=== PATIENT | male | born 1965 | race Hispanic/Latino ===

== ENCOUNTER → 2017-09-01 | Outpatient (CLI) | payer BC ==
[~2017-09-01] MED LIST: ASPI-1114 PO; ATOR10 PO; CINN1CAP PO; FISHOIL PO; GLYB-226 PO; OMEGA PO; PIOG45TA64 PO; SITA100T12 PO
== END | disposition home or self-care (01) ==
LOC: SHCH 08:21
PROVIDERS: ATTEND Internal Medicine Cardiovascular Disease
DX: I65.23 Occlusion and stenosis of bilateral carotid arteries (principal); I25.10 Atherosclerotic heart disease of native coronary artery without angina pectoris; I10 Essential (primary) hypertension
CPT/HCPCS: 93306; 93880

== ENCOUNTER → 2018-05-17 | Outpatient (CLI) | payer BC | END | disposition home or self-care (01) | LOC: SHCH 08:15 | PROVIDERS: ATTEND Internal Medicine Cardiovascular Disease | DX: I11.9 Hypertensive heart disease without heart failure (principal); I25.10 Atherosclerotic heart disease of native coronary artery without angina pectoris; I35.8 Other nonrheumatic aortic valve disorders | CPT/HCPCS: 93306 ==

== ENCOUNTER 2018-06-22 05:37 | Observation (INO) | payer BC ==
[2018-06-20 10:46] VITALS: BP 147/68
[2018-06-20 10:48] LABS: BASOPHILS % (AUTO) 0.6 % (0.0-5.0); EOSINOPHILS % (AUTO) 3.7 % (0.0-8.0); HEMATOCRIT 41.3 % (42-54); LYMPHOCYTES % (AUTO) 25.6 % (21.0-51.0); MEAN CORPUSCULAR HEMOGLOBIN 29.9 pg (27.0-33.0); MEAN CORPUSCULAR HGB CONC 33.1 g/dL (32.0-36.0); MEAN CORPUSCULAR VOLUME 90.1 fL (79-99); MONOCYTES % (AUTO) 7.2 % (3.0-13.0); NEUTROPHILS % (AUTO) 62.9 % (40.0-77.0); NUCLEATED RED BLOOD CELLS 0.1 % (0.0-0.19); PLATELET COUNT (AUTO) 186 K/uL (130-400); RED BLOOD CELL COUNT(AUTO) 4.59 MIL/uL (4.50-6.20); RED CELL DISTRIBUTION WIDTH 14.3 % (11.0-15.5); WHITE BLOOD COUNT (AUTO) 6.6 K/uL (4.8-10.8)
[2018-06-20 10:57] LABS: BILIRUBIN,URINE Negative (NEGATIVE); COLOR,URINE Yellow (YELLOW); CREATININE 1.4 mg/dL (0.5-1.5); GLUCOSE, URINE (UA) >=1000 mg/dL (NEGATIVE); KETONES,URINE Negative (NEGATIVE); LEUKOCYTE ESTERASE ,URINE Trace (NEGATIVE); NITRATE,URINE Negative (NEGATIVE); OCCULT BLOOD,URINE Negative (NEGATIVE); POTASSIUM 4.8 mmol/L (3.5-5.1); PROTEIN,URINE Negative (NEGATIVE); UROBILINOGEN,URINE 0.2 mg/dL (0.2-1.0)
[2018-06-20 11:09] LABS: APPEARANCE,URINE HAZY (CLEAR); INR 0.98 (0.85-1.15); PARTIAL THROMBOPLASTIN TIME 29.8 SEC (26.3-35.5); PROTHROMBIN TIME 10.3 SEC (9.6-11.6)
[2018-06-20 11:15] LABS: BACTERIA,URINE Many /HPF (None Seen); RBC,URINE 0-1 /HPF (0-1); SQUAMOUS EPITHELIAL CELL,UR Rare /HPF (0-2)
[2018-06-22] VITALS (11 sets, daily range): BP systolic 134–178; BP diastolic 61–90
[~2018-06-22] VITALS: Ht 188 cm; Wt 128.3 kg
[~2018-06-22 05:37] MED LIST changes: +ACET-2743 PO; -CINN1CAP PO; +DAPA10TA PO; -FISHOIL PO; +METO-408 PO; -OMEGA PO; +PIOG30TA10 PO; -PIOG45TA64 PO; +SODIUM CHLORIDE 0.9% 500ML 500 ML IV SCH
[2018-06-22 06:28] LABS: APPEARANCE,URINE Clear (CLEAR); BILIRUBIN,URINE Negative (NEGATIVE); COLOR,URINE Yellow (YELLOW); GLUCOSE, URINE (UA) >=1000 mg/dL (NEGATIVE); KETONES,URINE Negative (NEGATIVE); LEUKOCYTE ESTERASE ,URINE Negative (NEGATIVE); NITRATE,URINE Negative (NEGATIVE); OCCULT BLOOD,URINE Negative (NEGATIVE); PROTEIN,URINE Negative (NEGATIVE); UROBILINOGEN,URINE 0.2 mg/dL (0.2-1.0)
[2018-06-22] MEDS: SODIUM CHLORIDE 0.9% 1000ML 1,000 ML IV SCH ×2 (06:35→11:34)
[2018-06-22] MEDS ORDERED: LIDOCAINE HCL 1% 20 ML VIAL ONE (07:15)
--- NOTE | 2018-06-22 07:15 | NUR ---
PT TO THREAD SPOOLER, REPORT GIVEN TO SELENE THREAD SPOOLER RN AND CARE RENDERED OVER.
[2018-06-22] MEDS ORDERED: IOHEXOL-350 50ML VIAL IV ONE ×2 (07:16→08:59)
[2018-06-22] MEDS ORDERED: SODIUM BICARB 50MEQ 50ML VIAL ONE (07:16)
[2018-06-22] MEDS ORDERED: IOHEXOL 350 MG/ML 100ML INFUS..BTL IV ONE (07:16)
[2018-06-22] MEDS ORDERED: HEPARIN SODIUM 1000UNIT/ML 10ML VIAL ONE (07:16)
[2018-06-22] MEDS ORDERED: NITROGLYCERIN 5 MG/ML 10 ML VIAL IV ONE (07:16)
[2018-06-22 07:21] LABS: BACTERIA,URINE Many /HPF (None Seen); MUCUS,URINE Rare LPF (None Seen); RBC,URINE 0-1 /HPF (0-1); SQUAMOUS EPITHELIAL CELL,UR Rare /HPF (0-2)
[2018-06-22] MEDS ORDERED: ASPIRIN 81MG TAB.CHEW ONE (09:33)
[2018-06-22] MEDS ORDERED: TICAGRELOR 90 MG TABLET ONE (09:34)
[2018-06-22] MEDS ORDERED: ACETAMINOPHEN-CODEINE 300/30MG TAB PO PRN ×2 (10:00)
[2018-06-22] MEDS ORDERED: SODIUM CHLORIDE 0.9% 1000ML 1,000 ML IV SCH (10:00)
[2018-06-22] MEDS ORDERED: ONDANSETRON HCL 4 MG/2 ML VIAL IVP PRN (10:00)
[2018-06-22] MEDS ORDERED: TEMAZEPAM 30 MG CAP PO PRN (10:00)
[2018-06-22] MEDS ORDERED: NITROGLYCERIN 50 MG/D5% WATER 1 BOT IV PRN (10:00)
[2018-06-22] MEDS: ASPIRIN 81MG TAB.CHEW PO SCH (10:02)
[2018-06-22] MEDS ORDERED: NON-FORMULARY MEDICATION 1 EACH (Acetaminophen (Tylenol Extra Strength) 500 MG) PO SCH (11:30)
[2018-06-22] MEDS: PANTOPRAZOLE SODIUM 40 MG TABLET.DR PO SCH (11:31)
[2018-06-22] MEDS ORDERED: ***HM***(Dapagliflozin Propanediol (Farxiga) 10 MG) PO SCH (12:00)
[2018-06-22] MEDS ORDERED: PHARMACY COMMUNICATION MISC SCH (12:15)
[2018-06-22] MEDS ORDERED: METO25TA6 PO (16:46)
[2018-06-22] MEDS: METOPROLOL TARTRATE 25 MG TAB PO SCH (18:37)
[2018-06-22] MEDS: TICAGRELOR 90 MG TABLET PO SCH (20:25)
[2018-06-22] MEDS ORDERED: ATORVASTATIN CALCIUM 20 MG TABLET PO SCH (21:00)
[2018-06-22] MEDS ORDERED: METOPROLOL SUCCINATE 25 MG PO SCH (21:00)
[2018-06-23 00:39] VITALS: BP 146/80
[2018-06-23] MEDS: SODIUM CHLORIDE 0.9% 1000ML 1,000 ML IV SCH (01:11)
[2018-06-23 03:00] VITALS: BP 132/70
[2018-06-23 03:37] LABS: HEMATOCRIT 38.5 % (42-54); MEAN CORPUSCULAR HEMOGLOBIN 29.7 pg (27.0-33.0); MEAN CORPUSCULAR HGB CONC 33.2 g/dL (32.0-36.0); MEAN CORPUSCULAR VOLUME 89.5 fL (79-99); PLATELET COUNT (AUTO) 183 K/uL (130-400)
[2018-06-23 04:02] LABS: CREATININE 1.4 mg/dL (0.5-1.5); POTASSIUM 4.1 mmol/L (3.5-5.1)
[2018-06-23] MEDS: PANTOPRAZOLE SODIUM 40 MG TABLET.DR PO SCH (05:36)
[2018-06-23 07:00] VITALS: BP 148/74
--- NOTE | 2018-06-23 07:06 | NUR ---
Dr. Jaramillo here saw and examined the pt. ,he spoke to the pt and regarding medication compliance and activity.Pt. is okay to [facility].
[2018-06-23] MEDS ORDERED: PIOGLITAZONE HCL 30 MG TAB PO SCH (08:00)
[2018-06-23] MEDS ORDERED: LINAGLIPTIN 5 MG TABLET PO SCH (08:00)
[2018-06-23] MEDS: ASPIRIN 81MG TAB.CHEW PO SCH (08:58)
[2018-06-23] MEDS: METOPROLOL TARTRATE 25 MG TAB PO SCH (08:58)
[2018-06-23] MEDS: TICAGRELOR 90 MG TABLET PO SCH (09:00)
[2018-06-23 11:00] VITALS: BP 151/73
[2018-06-23] MEDS ORDERED: TICA90TA PO (11:24)
== END 2018-06-23 13:00 | disposition home or self-care (01) ==
LOC: DAH 05:37 → 2BH 05:38 → DAH 05:38 → 2AH 16:32
PROVIDERS: ADMIT Internal Medicine; ATTEND Internal Medicine
DX: I25.119 Atherosclerotic heart disease of native coronary artery with unspecified angina pectoris (principal); E11.9 Type 2 diabetes mellitus without complications; E78.5 Hyperlipidemia, unspecified; I10 Essential (primary) hypertension; I25.82 Chronic total occlusion of coronary artery; Z82.0 Family history of epilepsy and other diseases of the nervous system; Z82.3 Family history of stroke; Z82.49 Family history of ischemic heart disease and other diseases of the circulatory system; Z82.5 Family history of asthma and other chronic lower respiratory diseases; Z83.3 Family history of diabetes mellitus; Z95.1 Presence of aortocoronary bypass graft; Z79.899 Other long term (current) drug therapy; Z79.01 Long term (current) use of anticoagulants
CPT/HCPCS: 36415 ×2; 71045; 80048 ×2; 80061; 81001 ×2; 82948 ×6; 85025; 85027; 85610; 85730; 87077; 87088; 87186; 93005; 93459; A4606; C1725 ×4; C1760; C1769 ×5; C1874 ×2; C1887 ×2; C1894 ×2; C9600 ×2; G0378 ×31; J1644 ×2; J3490 ×2; J7030 ×3; Q9965 ×2; Q9967 ×3

== ENCOUNTER 2020-04-18 10:45 | Emergency (ER) | payer BC ==
[~2020-04-18 10:45] MED LIST changes: -GLYB-226 PO; +GLYB1TAB30 PO; -METO-408 PO; +METO25TA6 PO; -SODIUM CHLORIDE 0.9% 500ML 500 ML IV SCH; +TICA90TA PO
[2020-04-18 12:33] LABS: CREATININE 1.5 mg/dL (0.5-1.5); POTASSIUM 4.1 mmol/L (3.5-5.1)
[2020-04-18 12:37] LABS: ALBUMIN 4.1 g/dL (3.5-5.0); BILIRUBIN,TOTAL 0.6 mg/dL (0.2-1.0); TOTAL PROTEIN, SERUM 8.7 g/dL (6.0-8.3)
[2020-04-18] MEDS ORDERED: ONDANSETRON HCL 4 MG/2 ML VIAL ONE (12:40)
[2020-04-18 12:47] LABS: BASOPHILS % (AUTO) 0.2 % (0.0-5.0); EOSINOPHILS % (AUTO) 0.3 % (0.0-8.0); HEMATOCRIT 43.8 % (42-54); LYMPHOCYTES % (AUTO) 18.8 % (21.0-51.0); MEAN CORPUSCULAR HEMOGLOBIN 29.1 pg (27.0-33.0); MEAN CORPUSCULAR HGB CONC 33.3 g/dL (32.0-36.0); MEAN CORPUSCULAR VOLUME 87.3 fL (79-99); MONOCYTES % (AUTO) 8.4 % (3.0-13.0); NEUTROPHILS % (AUTO) 71.9 % (40.0-77.0); PLATELET COUNT (AUTO) 276 K/uL (130-400); RED BLOOD CELL COUNT(AUTO) 5.02 MIL/uL (4.50-6.20); WHITE BLOOD COUNT (AUTO) 9.8 K/uL (4.8-10.8)
== END 2020-04-18 14:44 | disposition home or self-care (01) ==
LOC: EDH 10:45
DX: U07.1 COVID-19 (principal); R11.2 Nausea with vomiting, unspecified; E11.9 Type 2 diabetes mellitus without complications
CPT/HCPCS: 36415; 71045; 80053; 82150; 82728; 83615; 83690; 85025; 85378; 85651; 86140; 96361; 96374; 99284; J2405